=== PATIENT | male | born 1980 | race Caucasian/White ===

== ENCOUNTER 2023-06-24 12:30 | Observation (INO) | payer BC, SELFPAY ==
[2023-06-24] VITALS (13 sets, daily range): BP systolic 125–161; BP diastolic 79–99; PULSE 112–137; RESP 15–21; TEMP 37.2; O2SAT 92–98; BMI 45.1
--- NOTE | ~2023-06-24 | XR_ITS ---
EXAMINATION: XR chest 2V DATE: 06/26/2023 14:54 INDICATION: Hypoxia. TECHNIQUE: Frontal and lateral views of the chest were obtained. COMPARISON: Chest single view 06/24/2023 FINDINGS: There is no pneumonia, pleural effusion, or pneumothorax. The heart size is normal. There i s an electronic device in left anterior chest wall. IMPRESSION: 1. No acute cardiopulmonary disease. Reviewed, dictated and finalized at location E.
--- NOTE | ~2023-06-24 | XR_ITS ---
EXAMINATION: XR chest 1V portable 06/24/2023 13:10 INDICATION: Overdose. PROCEDURE: AP portable chest COMPARISON: No prior studies for comparison. FINDINGS: The lungs are clear. The cardiomediastinal silhouette is within normal limits. There are no pleural effusions. There is no pneumothorax suspected. IMPRESSION: 1: NO ACUTE CARDIOPULMONARY DISEASE. Reviewed, dictated and finalized at location A.
--- NOTE | ~2023-06-24 | CT_ITS ---
EXAMINATION: CT abdomen pelvis wo con DATE: 06/27/2023 14:39 INDICATION: Left lower quadrant abdominal pain. Diarrhea. TECHNIQUE: Computed tomography (CT) of the abdomen and pelvis was performed without intravenous contr ast. Automated exposure control and iterative reconstruction technique were employed. The dose-length product was 1625.28 mGy-cm. COMPARISON: None. FINDINGS: The visualized portions of the lung bases are clear without pneumonia or pleural effusion. The heart size is normal. No pericardial effusion. There is diffuse hepatic steatosis. The gallbladde r is decompressed. The spleen, pancreas, adrenal glands, and kidneys are normal. There is no urolithi asis. There are no dilated loops of bowel. The appendix is normal. There is an umbilical hernia conta ining fat. There are no pathologically enlarged lymph nodes. There is no free intraperitoneal fluid. There is mild thoracic and lumbar spondylosis. IMPRESSION: 1. Diffuse hepatic steatosis. 2. Umbilical hernia containing fat. Reviewed, dictated and finalized at location E.
--- NOTE | ~2023-06-24 | CT_ITS ---
EXAMINATION: CT brain wo con DATE: 06/24/2023 16:00 INDICATION: Altered mental state TECHNIQUE: Computed tomography (CT) of the head was performed without intravenous contrast. The mA wa s adjusted according to patient size. Iterative reconstruction technique was employed. Exam dose: 60 5.33 mGy-cm total exam DLP. COMPARISON: None FINDINGS: There is a prominent dense chronic calcification with attenuation of 707 Hounsfield units m easuring up to 7 x 12 mm in the left sylvian fissure. No intracranial mass lesion or hemorrhage or cerebrovascular accident, midline shift or mass effect i s detected. No subdural or epidural hematoma. Normal ventricular size. The orbital contents are unremarkable. The mastoid air cells and included paranasal sinuses are normally developed and aerated. No fracture or bone destruction of the cranial vault. IMPRESSION: No acute intracranial finding or skull fracture Reviewed, dictated and finalized at Location A. Reviewed, dictated and finalized at location A.
--- NOTE | ~2023-06-24 | NM_ITS ---
EXAMINATION: NM lung vent and perfusion DATE: 06/27/2023 12:52 INDICATION: Tachycardia and hypoxia TECHNIQUE: 22.0 mCi xenon-133 by inhalation and 5.5 mCi Tc-99m MAA by intravenous route. Scintigraph ic images of the chest were obtained. COMPARISON: Chest radiograph dated 06/26/2023 FINDINGS: There is homogeneous radiotracer activity throughout the lungs on the single breath ventilation seque nce. Diffuse delayed washout which could be seen with obstructive pulmonary disease. There is relativ sara homogeneous perfusion throughout the lungs. No discrete ventilation and perfusion mismatch is id entified. IMPRESSION: 1. Normal perfusion images. Low probability for pulmonary embolism. 2. Diffuse delayed washout which could be seen with obstructive pulmonary disease including asthma. Reviewed, dictated and finalized at location A. IMPRESSION: 1. Normal perfusion images. Low probability for pulmonary embolism. 2. Diffuse delayed washout which could be seen with obstructive pulmonary disea se including asthma.
--- NOTE | 2023-06-24 12:36 | ECG_ITS ---
SEE SCANNED COPY FOR CONFIRMED REPORT MTDD
[2023-06-24 13:01] LABS: Alveolar/Arterial O2 Gradient 29.2 mmHg; Base Excess ABG -0.8 mEq/l (+/-2.0); Fractional Inspired Oxygen 21 %; Oxygen Content ABG 22.6 %vol (16.0-22.0); Oxygen Saturation ABG 94.5 % (95.0-100.0); PCO2 ABG 40.3 mmHg (35.0-45.0); PO2 ABG 72.3 mmHg (80.0-100.0); PO2 FiO2 Ratio Arterial Blood 3.44 %; Total Hemoglobin 17.7 g/dL (12.0-18.0); pH ABG 7.392 (7.350-7.450)
[2023-06-24 13:02] LABS: Device ROOM AIR; Modified Allen's Test Pass; Site Drawn LEFT RADIAL
--- NOTE | 2023-06-24 13:04 | ED.OVERDOSE ---
HPI - Overdose General Chief Complaint: Overdose Stated Complaint: POSSIBLE si Time Seen by Provider: 06/24/23 12:36 History of Present Illness HPI Narrative: Patient is a 42-year-old male who presents ER for possible suicide attempt. Patient is currently going through a divorce, his sister had not seen him for several days and called for wellness check, patient was found unconscious and covered in feces and urine. Patient is awake alert oriented times 2-3 at this time. He is very intoxicated. He reports he has been drinking whiskey. He also reports that he took all of his pills. He does have a bag of pills with him and the bottles do not have a significant amount of missed some medication. He cannot tell us exactly what he did take. His daughter was found in the home. He denies intentionally killing his dog is unsure how the dog may have . Related Data Home Medications Medication Instructions Recorded Confirmed aripiprazole 30 mg tablet 30 mg PO DAILY 06/24/23 06/24/23 atorvastatin 80 mg tablet 80 mg PO DAILY 06/24/23 06/24/23 buspirone 10 mg tablet 10 mg PO TID 06/24/23 06/24/23 clopidogrel 75 mg tablet 75 mg PO DAILY 06/24/23 06/24/23 hydrochlorothiazide 12.5 mg tablet 12.5 mg PO DAILY 06/24/23 06/24/23 omeprazole 40 mg capsule,delayed 40 mg PO DAILY 06/24/23 06/24/23 release prazosin 2 mg capsule 2 mg PO HS 06/24/23 06/24/23 propranolol 40 mg tablet 40 mg PO BID 06/24/23 06/24/23 Allergies Allergy/AdvReac Type Severity Reaction Status Date / Time cefazolin [From Anc] Allergy Unknown Verified 06/24/23 13:26 NSAIDS (Non-Steroidal Allergy Swelling Verified 06/24/23 20:46 Anti-Inflamma of Lip/Tongue/Throat iohexol AdvReac Nausea Verified 06/24/23 20:46 [From contrast - CT, X-RAY] Review of Systems Review of Systems: ROS unobtainable: Yes unobtainable due to medical condition PMFSH Past Medical History Medical History (Updated 06/27/23 @ 13:13 by Henok Wellington MD) Alcohol abuse Depression GERD (gastroesophageal reflux disease) Hyperlipidemia Hypertension ETELVINA (obstructive sleep apnea) TIA (transient ischemic attack) Surgical History Surgical History No pertinent past surgical history Family History Family History Mother COPD (chronic obstructive pulmonary disease) Father Hypertension Social History Social History Smoking packs per day: 1 Smoking cigarettes per day: 20.0 Years smoked: 10 Smoking pack-years: 10.00 Smoking status: Former smoker Smokeless tobacco user: chewing tobacco Smoking end date: 06/23/20 Alcohol intake: current Substance use: never Substance use type: does not use Other substance usage details: drinks a fifth of Justin Beam daily Do You Feel Safe in your Home?: Yes Lack of Transportation: No Lack of Food: Never True Current Housing: I Have Housing Concerned About Future Housing: YES Difficulty Paying Gas/Electric Bills: No Difficulty Paying for Meds: No Currently Unemployed: No Education: High School Diploma/GED Difficulty w/ Childcare or Family Care: No Spiritual care concerns: No Exam Narrative: GENERAL: Well-appearing, well-nourished, and in no acute distress. HEAD: Normocephalic, atraumatic. EYES: PERRLA and EOMI. ENT: Nares clear, no rhinorrhea or epistaxis. Mucous membranes moist. NECK: Supple. CHEST: Clear to auscultation. No respiratory distress. HEART: Regular rate and rhythm. No murmur heard. Normal peripheral pulses. ABDOMEN: Soft, nontender, nondistended, normal active bowel sounds. EXTREMITIES: Normal range of motion. No edema. SKIN: Warm, dry, no rash. NEURO: No focal deficits. Alert and oriented x3. PSYCH: Normal mood and affect. Course Course Emergency Course: Patient aggressively hydrated. Re-e
[2023-06-24 13:05] LABS: Glucose Point of Care 121 mg/dl (65-105)
[2023-06-24] MEDS: SODIUM CHLORIDE 0.9% IV 1,000 ML 999 ML IV CONT ×3 (13:13→14:28)
[2023-06-24 13:16] LABS: Basophils Absolute Auto 0.1 K/mm3 (0.0-0.1); Basophils Percent Auto 0.6 % (0.2-1.2); Eosinophils Percent Auto 0.1 % (0-4.4); Hematocrit 50.4 % (42.0-52.0); Hemoglobin 16.8 g/dL (14.0-18.0); Immature Granulocyte Absolute 0.04 K/mm3 (0.00-0.031); Immature Granulocyte Percent A 0.4 % (0-0.5); Lymphocytes Absolute Auto 1.51 K/mm3 (0.9-3.2); Lymphocytes Percent Auto 14.2 % (18.3-44.2); Mean Corpuscular HGB Conc 33.3 g/dl (32-36); Mean Corpuscular Hemoglobin 28.5 pg (26-34); Mean Corpuscular Volume 85.6 fl (80-100); Mean Platelet Volume 9.5 fl (7.4-10.4); Monocytes Percent Auto 9.6 % (2.6-8.5); Neutrophils Percent Auto 75.1 % (45.5-73.1); Platelet Count Result 194 k/mm3 (150-375); Red Blood Count 5.89 M/mm3 (4.6-6.20); Red Cell Distribution Width 15.2 % (11.5-14.5); White Blood Count 10.6 K/mm3 (4.5-10.0)
--- NOTE | 2023-06-24 13:21 | PC.NURSE ---
Pt tried to urinate with urinal. Unable to give sample at this time. States he will try again in a couple minutes after getting more IVF.
[2023-06-24 13:29] LABS: Alanine Aminotransferase 165 U/L (6-50); Alkaline Phosphatase 128 U/L (38-126); Anion Gap 20 mmol/L (4-12); Aspartate Amino Transferase 300 U/L (17-59); Bilirubin,Total 1.2 mg/dL (0.2-1.3); Blood Urea Nitrogen 13 mg/dL (9-20); Calcium 8.6 mg/dL (8.4-10.2); Carbon Dioxide 24 mmol/L (22-30); Chloride 95 mmol/L (98-107); Estimated CRCL calculation 147 ml/min; Estimated Glomerular Filt Rate > 60; Glucose 112 mg/dL (65-110); Potassium 3.5 mmol/L (3.4-5.0); Sodium 139 mmol/L (137-145)
[2023-06-24 13:34] LABS: Magnesium 2.4 mg/dL (1.6-2.3)
[2023-06-24 13:46] LABS: Acetaminophen < 10 ug/mL (10-30); Salicylate < 1.0 mg/dL (2-20)
[2023-06-24 13:51] LABS: INR 0.9; Prothrombin Time 12.8 Seconds (11.1-14.7)
[2023-06-24 13:52] LABS: Partial Thromboplastin Time 26.9 Seconds (22.3-36.8)
[2023-06-24 14:03] LABS: Ethanol 419 mg/dL (<10); Lactic Acid Reflex 6.3 mmol/L (0.7-2.0)
--- NOTE | 2023-06-24 14:31 | PC.NURSE ---
Pt attempted to urinate with urinal again. Unable to void. Bladder scan performed, only showing 30mL. MD made aware. States urine can wait until fluids are done. Pt educated.
--- NOTE | 2023-06-24 15:47 | PC.NURSE ---
Patient's sister and called for update. With patient permission, update was given. Maty, pt estranged , can be reached at [phone] Kiana, pt sister, can be reached at [phone]. Both state that they live out of state and cannot be here with patient.
--- NOTE | 2023-06-24 15:53 | PC.NURSE ---
Pt taken to CT at this time
[2023-06-24 16:13] LABS: Reflex Lactic Acid Yes or No Add Lactic
[2023-06-24 16:35] LABS: Amphetamine Screen Urine Negative (Negative); Barbiturate Screen Urine Negative (Negative); Benzodiazepines Screen Urine Negative (Negative); Cannabinoid Screen Urine Negative (Negative); Cocaine Screen Urine Negative (Negative); Methadone Screen Urine Negative (Negative); Opiate Screen Urine Negative (Negative); Phencyclidine Screen Urine Negative (Negative)
[2023-06-24 17:24] LABS: Lactic Acid 4.3 mmol/L (0.7-2.0)
[2023-06-24 17:40] LABS: Appearance Urine Cloudy (Clear); Bacteria Urine None Seen /hpf; Bilirubin Urine 1+ (Negative); Blood Urine 2+ (Negative); Color Urine Dark Yellow (Yellow); Glucose Urine UA Negative (Negative); Hyaline Casts Urine Present /lpf; Ketones Urine 3+ mg/dL (Negative); Leukocyte Esterase Ur Negative LEU/UL (Negative); Need Manual Microscopic Reviewed; Nitrate Urine Negative (Negative); Non Pathogenic Casts 0-2; Protein Urine 4+ mg/dL (Negative); Squamous Epithelial Cell Urine None Seen /hpf (Few)
[2023-06-24 17:49] LABS: Add Urine Microscopic? YES
[2023-06-24 18:09] LABS: Acetaminophen < 10 ug/mL (10-30)
[2023-06-24] MEDS: SODIUM CHLORIDE 0.9% IV 1,000 ML 125 ML IV CONT (18:15)
[2023-06-24] MEDS: NICOTINE (*PBKC) 14 MG PATCH 1 PATCH TRANSDERM (18:15)
[2023-06-24 19:50] LABS: Glucose Point of Care 139 mg/dl (65-105)
[2023-06-24] MEDS: ONDANSETRON INJ 4 MG/2 ML VIAL IV PUSH (20:00)
--- NOTE | 2023-06-24 20:42 | ADMGEN ---
This patient, Frederic Carter, was admitted to Intensive Care Unit-4. Patient/family oriented to hospital policies and general routines including ID bracelet, bed and alarms, visiting hours, pain management, procedures, bathroom and other care routines, personal items, smoking policy, room service/diet, and visiting hours. Information on how to activate the Rapid Response Team has been discussed. Patient/Family are encouraged to report perceived risks to care and to ask questions if they do not understand what they are told or what they should do.
[2023-06-24 20:59] LABS: Lactic Acid Reflex 3.9 mmol/L (0.7-2.0)
[2023-06-24 21:02] LABS: Creatine Kinase 888 U/L (55-170)
[2023-06-24 21:03] LABS: Salicylate < 1.0 mg/dL (2-20)
--- NOTE | 2023-06-24 21:27 | PM.IMHP ---
H&P: HPI History of Present Illness Date/Time: 06/24/23 21:27 Chief Complaint: ETOH, Overdose Narrative: 42 y/o M presents here with acute intoxication, possible suicide attempt, and ingestion with PMH of HLD, HTN, and TIA (x3). Patient presents here for further evaluation after his sister called a wellness check. She had not seen him for several days, upon EMS arrival patient was found to be covered in feces and urine and laying on the ground in his house. Patient acutely intoxicated, uncooperative, and somnolent. Patient's dog was found in the home, denied intentionally killing his dog to ED provider, and is unsure how his dog . Patient - not currently going through a divorce, they do live in separate places due to their jobs. He has history of suicide ideation - on and off for the last 6 months. Patient cannot identify anything in particular adding to his suicidal ideation, states he is just over it . No previous history of a suicide attempt. Currently a daily alcohol drinker, drinks approximately a 5th of whiskey per day. Has been drinking daily for the last week, before that was completely from abstaining from alcohol for the past 3 months. Has tried to quit alcohol use 2 other times. Patient reports he attempted to drink 3 fifths this morning. Last drink: was at 12:00 pm this morning. Patient also initially reported that he took a bunch of pills this morning, now clarifying that he takes a bunch of pills daily but he took the normal amount that is prescribed to him and did not realize that it was misinterpreted as an attempted overdose. Meds were his home prescriptions. Is currently prescribed: Abilify, atorvastatin, BuSpar, Plavix, hydrochlorothiazide, omeprazole, prazosin, and propranolol. Patient sees a therapist, last saw him 3 months ago. Patient finding it difficulty to do his day-to-day activities and keeping up with appointments etc. Patient has previously withdrawn from alcohol and experienced N/V/D, tremors, diaphoresis and flu-like symptoms but no seizure activity. Patient is former smoker, but currently uses chewing tobacco. Initial VS at presentation: 99? F, HR 135, RR 20, 130/99, and 96% on RA. ED workup showed: WBC 10.6, no anemia, normal coags, sodium 139, chloride 95, gap 20, creatinine 0.8 and GFR >60, glucose 112, lactic acid 6.3, calcium 8.6, magnesium 2.4, total bilirubin 1.2, AST 300, ALT 165, alk-phos 128. UA not suggestive of UTI. UDS negative. Negative salicylate and acetaminophen x2. Ethanol 419. CXR showed no acute cardiopulmonary disease. Head CT showed no acute intracranial findings or skull fracture. Review of Systems Review of Systems: All systems reviewed & are unremarkable except as noted in HPI and below [facility] Past Medical History Medical History (Updated 06/24/23 @ 23:49 by Chasity Murillo APRN) Alcohol abuse Depression GERD (gastroesophageal reflux disease) Hyperlipidemia Hypertension TIA (transient ischemic attack) Surgical History Surgical History No pertinent past surgical history Family History Family History Mother COPD (chronic obstructive pulmonary disease) Father Hypertension Social History Social History Smoking packs per day: 1 Smoking cigarettes per day: 20.0 Years smoked: 10 Smoking pack-years: 10.00 Smoking status: Former smoker Smokeless tobacco user: chewing tobacco Smoking end date: 06/23/20 Alcohol intake: current Substance use: never Substance use type: does not use Other substance usage details: drinks a fifth of Justin Beam daily Do You Feel Safe in your Home?: Yes Lack of Transportation: No Lack of Food: Never True Current Housing: I Have Housing Concerned About Future Housing: YES Difficulty Paying Gas/Electric Bills: No Difficulty
--- NOTE | 2023-06-24 21:29 | ECG_ITS ---
SEE SCANNED COPY FOR CONFIRMED REPORT. MTDD
[2023-06-24 21:41] LABS: Thyroid Stimulating Hormone Reflex 0.857 uIU/mL (0.465-4.68)
[2023-06-24 22:00] LABS: Troponin I < 0.012 ng/mL (0.000-0.034)
[2023-06-24] MEDS: chlordiazePOXIDE (*CRX) 25 MG CAPSULE PO (22:35)
[2023-06-24] MEDS: PROPRANOLOL HCL 40 MG TABLET PO (22:35)
[2023-06-24] MEDS: PANTOPRAZOLE SODIUM IV 40 MG VIAL IV PUSH (22:36)
[2023-06-25] VITALS (20 sets, daily range): BP systolic 118–156; BP diastolic 70–103; PULSE 83–104; RESP 17–26; TEMP 37–37.1; O2SAT 93–99
[2023-06-25] MEDS: LORazepam INJ (*CRX) 2 MG/ML VIAL IV PUSH ×2 (00:19→03:20)
[2023-06-25] MEDS: NICOTINE (*PBKC) 21 MG PATCH 1 PATCH TRANSDERM ×2 (00:22→08:37)
[2023-06-25 00:42] LABS: Glucose Point of Care 92 mg/dl (65-105)
[2023-06-25 01:18] LABS: Troponin I < 0.012 ng/mL (0.000-0.034)
[2023-06-25] MEDS: SODIUM CHLORIDE 0.9% IV 1,000 ML 125 ML IV CONT ×4 (03:20→21:53)
[2023-06-25 04:35] LABS: Basophils Percent Auto 0.3 % (0.2-1.2); Eosinophils Percent Auto 0.3 % (0-4.4); Hematocrit 41.8 % (42.0-52.0); Hemoglobin 13.7 g/dL (14.0-18.0); Immature Granulocyte Absolute 0.03 K/mm3 (0.00-0.031); Immature Granulocyte Percent A 0.4 % (0-0.5); Immature Platelet Fraction Pct 3.4 % (0.9-11.2); Lymphocytes Absolute Auto 1.06 K/mm3 (0.9-3.2); Lymphocytes Percent Auto 15.7 % (18.3-44.2); Mean Corpuscular HGB Conc 32.8 g/dl (32-36); Mean Corpuscular Hemoglobin 28.6 pg (26-34); Mean Corpuscular Volume 87.3 fl (80-100); Mean Platelet Volume 9.4 fl (7.4-10.4); Monocytes Absolute Auto 0.6 K/mm3 (0.1-0.6); Neutrophils Percent Auto 74.3 % (45.5-73.1); Platelet Count Result 120 k/mm3 (150-375); Red Blood Count 4.79 M/mm3 (4.6-6.20); Red Cell Distribution Width 15.3 % (11.5-14.5); White Blood Count 6.8 K/mm3 (4.5-10.0)
[2023-06-25 04:59] LABS: Alanine Aminotransferase 124 U/L (6-50); Albumin Level 4.1 g/dL (3.5-5.1); Alkaline Phosphatase 93 U/L (38-126); Anion Gap 7 mmol/L (4-12); Aspartate Amino Transferase 152 U/L (17-59); Bilirubin,Total 1.6 mg/dL (0.2-1.3); Blood Urea Nitrogen 10 mg/dL (9-20); Calcium 8.5 mg/dL (8.4-10.2); Carbon Dioxide 29 mmol/L (22-30); Chloride 101 mmol/L (98-107); Estimated CRCL calculation 148 ml/min; Estimated Glomerular Filt Rate > 60; Glucose 85 mg/dL (65-110); Lactic Acid Reflex 1.5 mmol/L (0.7-2.0); Sodium 137 mmol/L (137-145)
[2023-06-25 05:04] LABS: Potassium 3.6 mmol/L (3.4-5.0)
[2023-06-25] MEDS: chlordiazePOXIDE (*CRX) 25 MG CAPSULE PO ×2 (06:51→13:55)
[2023-06-25] MEDS: THIAMINE HCL 200 MG/2 ML VIAL 100 MG IV PUSH (08:36)
[2023-06-25] MEDS: PANTOPRAZOLE SODIUM IV 40 MG VIAL IV PUSH (08:37)
[2023-06-25] MEDS: hydroCHLOROthiazide 12.5 MG CAPSULE PO (08:38)
[2023-06-25] MEDS: CLOPIDOGREL BISULFATE 75 MG TABLET PO (08:38)
--- NOTE | 2023-06-25 09:39 | PC.NURSE ---
Updated spouse on patyient request for no medical updates to family and he is ok with visitors at this time.
[2023-06-25] MEDS: PROPRANOLOL HCL 40 MG TABLET PO ×2 (10:33→16:18)
[2023-06-25 11:39] LABS: Glucose Point of Care 103 mg/dl (65-105)
--- NOTE | 2023-06-25 15:08 | PM.IMPN ---
Progress Note: A&P Assessment and Plan (1) Suicide attempt: Code(s): T14.91XA - Suicide attempt, initial encounter Status: Acute Assessment and Plan: Patient admits to a suicide attempt with drinking excessive amounts of alcohol. He also told EMS that he took pills but this unable to be verified. He has had suicidal ideation but no previous hx of suicide attempt Initial ETOH 419. UDS negative. Salicylates and Tylenol initial and 4 hour results also negative Patient receiving medical treatment and clearance Will need crisis consultation once stable Continue suicide precautions, sitter at bedside (2) Overdose: Code(s): T50.901A - Poisoning by unspecified drugs, medicaments and biological substances, accidental (unintentional), initial encounter Status: Acute Assessment and Plan: As above. Patient currently prescribed:Abilify, atorvastatin, BuSpar, Plavix, HCTZ, omeprazole, prazosin, and propranolol Unclear if he overdosed on any of these medications EKG: sinus tachycardia with rate of 124, borderline left axis deviation. Lactic acid: 6.3 -> 1.5 probably related to the alcohol Monitor on tele (3) Hypoxia: Code(s): R09.02 - Hypoxemia Status: Acute Assessment and Plan: Patient with hypoxia requiring 2-3 L. chest x-ray clear. Lung exam benign. Could be related to his untreated sleep apnea. Wean oxygen as tolerated. Repeat chest x-ray in the morning (4) Alcohol intoxication: Code(s): F10.929 - Alcohol use, unspecified with intoxication, unspecified Status: Acute Assessment and Plan: ETOH 419. LFTs elevated. Acute intoxication waning. Repeat alcohol level in AM (5) Alcohol abuse: Code(s): F10.10 - Alcohol abuse, uncomplicated Status: Acute Assessment and Plan: Patient is a daily drinker and consumed approximately a 5th of whiskey daily LFTs elevated with TB 1.2, AST 300, ALT 165, alk-phos 128 felt related to alcoholic hepatitis. CIWA 2-6 today. LFTs improving Patient was educated about the benefits of staying from alcohol use. Continue CIWA protocol. Continue Thiamine Has Ativan and Librium available as needed. Check hepatitis panel. (6) Tobacco abuse: Code(s): Z72.0 - Tobacco use Status: Acute Assessment and Plan: Patient was educated about the benefits of smoking cessation. Continue nicotine patch. (7) Hyperlipidemia: Code(s): E78.5 - Hyperlipidemia, unspecified Status: Acute Assessment and Plan: LFTs noted. Lipitor on hold. (8) Hypertension: Code(s): I10 - Essential (primary) hypertension Status: Acute Assessment and Plan: Patient's blood pressure was reviewed on 06/24 Blood pressure remains reasonably well controlled. Will continue to monitor (9) ETELVINA (obstructive sleep apnea): Code(s): G47.33 - Obstructive sleep apnea (adult) (pediatric) Status: Acute Assessment and Plan: Patient with ETELVINA. He cannot tolerate CPAP. Plan Questionable UTI -UA noted. Patient with dysuria. Urine culture pending. Start ciprofloxacin given his cephalosporin allergy. DVT Prophylaxis: SCDs Code Status: Full code Subjective Date/time seen: 06/25/23 15:08 Interval history: 42yo male with TIA, HTN and HLD here for alcohol intoxication and suicide attempt He admits that he was trying to hurt himself by drinking excessive amounts of alcohol. He has been having suicidal ideation. He denies hurting his dog. The dog has DM and he has not been giving him his insulin which may have caused the dog's . No CP or SOB. No n/v bu no appetite. Having dysuria and diarrhea. Exam Narrative: AF 98.8 148/91 91 24 97% 2L Gen - NARD Chest - CTA bilaterally, nml RR CV - RRR S1/S2. Tele showing occasional sinus tachycardia Abd - Soft, obese, NT Ext - No pedal edema Neuro - Alert and oriented. Nonfocal exam. Psych - Nml mood a
[2023-06-25] MEDS: PRAZOSIN HCL 1 MG CAPSULE 2 MG PO (20:06)
[2023-06-25] MEDS: CIPROFLOXACIN 500 MG TAB PO (20:06)
[2023-06-26] VITALS (13 sets, daily range): BP systolic 123–153; BP diastolic 78–95; PULSE 88–115; RESP 16–23; TEMP 36.9–37.1; O2SAT 95–98
[2023-06-26 00:31] LABS: Glucose Point of Care 90 mg/dl (65-105)
[2023-06-26 04:13] LABS: Basophils Percent Auto 0.4 % (0.2-1.2); Eosinophils Absolute Auto 0.1 K/mm3 (0-0.3); Eosinophils Percent Auto 2.2 % (0-4.4); Hematocrit 40.7 % (42.0-52.0); Hemoglobin 13.3 g/dL (14.0-18.0); Immature Granulocyte Absolute 0.03 K/mm3 (0.00-0.031); Immature Granulocyte Percent A 0.6 % (0-0.5); Immature Platelet Fraction Pct 4.3 % (0.9-11.2); Lymphocytes Absolute Auto 0.75 K/mm3 (0.9-3.2); Mean Corpuscular HGB Conc 32.7 g/dl (32-36); Mean Corpuscular Hemoglobin 28.7 pg (26-34); Mean Corpuscular Volume 87.9 fl (80-100); Mean Platelet Volume 10.2 fl (7.4-10.4); Monocytes Absolute Auto 0.5 K/mm3 (0.1-0.6); Monocytes Percent Auto 10.8 % (2.6-8.5); Neutrophils Absolute Auto 3.5 K/mm3 (1.3-6.7); Platelet Count Result 84 k/mm3 (150-375); Red Blood Count 4.63 M/mm3 (4.6-6.20); Red Cell Distribution Width 14.8 % (11.5-14.5)
[2023-06-26 04:24] LABS: Alanine Aminotransferase 99 U/L (6-50); Albumin Level 3.7 g/dL (3.5-5.1); Alkaline Phosphatase 82 U/L (38-126); Anion Gap 6 mmol/L (4-12); Aspartate Amino Transferase 90 U/L (17-59); Bilirubin,Total 1.4 mg/dL (0.2-1.3); Blood Urea Nitrogen 6 mg/dL (9-20); Calcium 8.5 mg/dL (8.4-10.2); Carbon Dioxide 31 mmol/L (22-30); Chloride 96 mmol/L (98-107); Estimated CRCL calculation 148 ml/min; Estimated Glomerular Filt Rate > 60; Glucose 87 mg/dL (65-110); Sodium 133 mmol/L (137-145)
[2023-06-26 04:26] LABS: Ethanol < 10 mg/dL (<10)
[2023-06-26 05:28] LABS: Hepatitis B Surface Antigen Negative (Negative)
[2023-06-26 05:34] LABS: HAV RESULT Negative (Negative); Hepatitis B Core IgM Result Negative (Negative)
[2023-06-26 05:46] LABS: Hepatitis C Virus Antibody Negative (Negative)
[2023-06-26] MEDS: SODIUM CHLORIDE 0.9% IV 1,000 ML 125 ML IV CONT (06:07)
[2023-06-26] MEDS: hydroCHLOROthiazide 12.5 MG CAPSULE PO (08:21)
[2023-06-26] MEDS: CIPROFLOXACIN 500 MG TAB PO (08:21)
[2023-06-26] MEDS: PROPRANOLOL HCL 40 MG TABLET PO ×2 (08:21→16:21)
[2023-06-26] MEDS: THIAMINE HCL 200 MG/2 ML VIAL 100 MG IV PUSH (08:21)
[2023-06-26] MEDS: CLOPIDOGREL BISULFATE 75 MG TABLET PO (08:21)
[2023-06-26] MEDS: PANTOPRAZOLE SODIUM IV 40 MG VIAL IV PUSH (08:22)
[2023-06-26] MEDS: NICOTINE (*PBKC) 21 MG PATCH 1 PATCH TRANSDERM (08:22)
[2023-06-26] MEDS: POTASSIUM CHLORIDE 20 MEQ ER TABLET 40 MEQ PO (08:44)
[2023-06-26 08:51] LABS: Magnesium 1.7 mg/dL (1.6-2.3)
[2023-06-26] MEDS: POTASSIUM CHLORIDE 20 MEQ ER TABLET PO (10:19)
[2023-06-26 12:20] LABS: Potassium 3.7 mmol/L (3.4-5.0)
[2023-06-26] MEDS: busPIRone HCL 10 MG TABLET PO ×2 (12:31→16:21)
--- NOTE | 2023-06-26 13:45 | PM.IMPN ---
Progress Note: A&P Assessment and Plan (1) Suicide attempt: Code(s): T14.91XA - Suicide attempt, initial encounter Status: Acute Assessment and Plan: Patient admits to a suicide attempt with drinking excessive amounts of alcohol. He also told EMS that he took pills but this was unable to be verified. He has had suicidal ideation but no previous hx of suicide attempt Initial ETOH 419. UDS negative. Salicylates and Tylenol initial and 4 hour results also negative Patient receiving medical treatment and clearance Will need crisis consultation once stable Continue suicide precautions, sitter at bedside (2) Overdose: Code(s): T50.901A - Poisoning by unspecified drugs, medicaments and biological substances, accidental (unintentional), initial encounter Status: Acute Assessment and Plan: As above. Patient currently prescribed:Abilify, atorvastatin, BuSpar, Plavix, HCTZ, omeprazole, prazosin, and propranolol Unclear if he overdosed on any of these medications EKG: sinus tachycardia with rate of 124, borderline left axis deviation. Lactic acid: 6.3 -> 1.5 probably related to the alcohol Most of his home medications resumed. Monitor on tele (3) Hypoxia: Code(s): R09.02 - Hypoxemia Status: Acute Assessment and Plan: Patient with hypoxia requiring 2-3 L. chest x-ray clear. Lung exam benign. Could be related to his untreated sleep apnea. Wean oxygen as tolerated. Repeat CXR (4) Alcohol intoxication: Code(s): F10.929 - Alcohol use, unspecified with intoxication, unspecified Status: Acute Assessment and Plan: ETOH 419. LFTs elevated. Acute intoxication waning. Repeat alcohol level <10 (5) Alcohol abuse: Code(s): F10.10 - Alcohol abuse, uncomplicated Status: Acute Assessment and Plan: Patient is a daily drinker and consumed approximately a 5th of whiskey daily LFTs elevated with TB 1.2, AST 300, ALT 165, alk-phos 128 felt related to alcoholic hepatitis. Hepatitis panel negative. CIWA 0-2 today. LFTs improving Patient was educated about the benefits of staying from alcohol use. Continue CIWA protocol. Continue Thiamine Has Ativan and Librium available as needed. (6) Tobacco abuse: Code(s): Z72.0 - Tobacco use Status: Acute Assessment and Plan: Patient was educated about the benefits of smoking cessation. Continue nicotine patch. (7) Hyperlipidemia: Code(s): E78.5 - Hyperlipidemia, unspecified Status: Acute Assessment and Plan: LFTs noted. Lipitor on hold. (8) Hypertension: Code(s): I10 - Essential (primary) hypertension Status: Acute Assessment and Plan: Patient's blood pressure was reviewed on 06/25 Blood pressure remains reasonably well controlled. Will continue to monitor (9) ETELVINA (obstructive sleep apnea): Code(s): G47.33 - Obstructive sleep apnea (adult) (pediatric) Status: Acute Assessment and Plan: Patient with ETELVINA. He cannot tolerate CPAP. Plan Questionable UTI -UA noted. Patient with dysuria. Urine culture negative. Stop Cipro. UTI ruled out DVT Prophylaxis: SCDs Code Status: Full code Subjective Date/time seen: 06/26/23 13:45 Interval history: 42yo male with TIA, HTN and HLD here for alcohol intoxication and suicide attempt No fever or chills. Has WAGGONER. Quit smoking but still chews tobacco and states he has no desire to quit. No cough or SOB. No CP or pleuritic CP. Eating better. Noncompliant with CPAP. Complains of tarry stools for the past month. No colonoscopy in the past. Exam Narrative: AF 98.7 153/95 90 16 95% 1L Gen - NARD Chest - CTA bilaterally, nml RR CV - RRR S1/S2. Tele showing occasional sinus tachycardia Abd - Soft, obese, NT Ext - No pedal edema. Negative Homans Psych - Nml mood and affect. Skin - Warm and dry Objective Data Vital Signs Vital Signs: Vital Signs -
[2023-06-26] MEDS: MAGNESIUM SULF 2 GM/WATER 50ML 2 GM/50 ML BAG IVPB (15:09)
[2023-06-26] MEDS: PRAZOSIN HCL 1 MG CAPSULE 2 MG PO (21:21)
[2023-06-27] VITALS (7 sets, daily range): BP systolic 126–136; BP diastolic 82–94; PULSE 91–122; RESP 13–16; TEMP 36.8–37; O2SAT 92–96
[2023-06-27 03:58] LABS: Basophils Percent Auto 0.4 % (0.2-1.2); Eosinophils Absolute Auto 0.2 K/mm3 (0-0.3); Eosinophils Percent Auto 4.6 % (0-4.4); Hematocrit 41.8 % (42.0-52.0); Hemoglobin 13.9 g/dL (14.0-18.0); Immature Granulocyte Absolute 0.01 K/mm3 (0.00-0.031); Immature Granulocyte Percent A 0.2 % (0-0.5); Immature Platelet Fraction Pct 6.1 % (0.9-11.2); Lymphocytes Absolute Auto 0.89 K/mm3 (0.9-3.2); Lymphocytes Percent Auto 19.4 % (18.3-44.2); Mean Corpuscular HGB Conc 33.3 g/dl (32-36); Mean Corpuscular Hemoglobin 28.9 pg (26-34); Mean Corpuscular Volume 86.9 fl (80-100); Mean Platelet Volume 10.3 fl (7.4-10.4); Monocytes Absolute Auto 0.5 K/mm3 (0.1-0.6); Monocytes Percent Auto 11.8 % (2.6-8.5); Neutrophils Absolute Auto 2.9 K/mm3 (1.3-6.7); Neutrophils Percent Auto 63.6 % (45.5-73.1); Platelet Count Result 91 k/mm3 (150-375); Red Blood Count 4.81 M/mm3 (4.6-6.20); Red Cell Distribution Width 14.8 % (11.5-14.5); White Blood Count 4.6 K/mm3 (4.5-10.0)
[2023-06-27 04:12] LABS: IFOB Positive Control Positive; Immunochemical Fecal Occult Bl Negative (N)
[2023-06-27 04:16] LABS: Alanine Aminotransferase 109 U/L (6-50); Albumin Level 3.8 g/dL (3.5-5.1); Alkaline Phosphatase 100 U/L (38-126); Anion Gap 6 mmol/L (4-12); Aspartate Amino Transferase 128 U/L (17-59); Bilirubin,Total 0.9 mg/dL (0.2-1.3); Blood Urea Nitrogen 7 mg/dL (9-20); Calcium 9.3 mg/dL (8.4-10.2); Carbon Dioxide 33 mmol/L (22-30); Chloride 97 mmol/L (98-107); Estimated CRCL calculation 167 ml/min; Estimated Glomerular Filt Rate > 60; Glucose 113 mg/dL (65-110); Potassium 3.2 mmol/L (3.4-5.0); Sodium 136 mmol/L (137-145)
[2023-06-27] MEDS: CLOPIDOGREL BISULFATE 75 MG TABLET PO (08:57)
[2023-06-27] MEDS: POTASSIUM CHLORIDE 20 MEQ ER TABLET 40 MEQ PO ×2 (08:57→14:59)
[2023-06-27] MEDS: PANTOPRAZOLE 40 MG TABLET PO (08:57)
[2023-06-27] MEDS: NICOTINE (*PBKC) 21 MG PATCH 1 PATCH TRANSDERM (08:57)
[2023-06-27] MEDS: hydroCHLOROthiazide 12.5 MG CAPSULE PO (08:57)
[2023-06-27] MEDS: busPIRone HCL 10 MG TABLET PO ×3 (08:57→16:58)
[2023-06-27] MEDS: PROPRANOLOL HCL 40 MG TABLET PO (08:58)
[2023-06-27] MEDS: POTASSIUM CHLORIDE 20 MEQ ER TABLET PO (08:58)
[2023-06-27] MEDS: THIAMINE HCL 100 MG TABLET PO (08:58)
[2023-06-27 11:13] LABS: Potassium 3.5 mmol/L (3.4-5.0)
--- NOTE | 2023-06-27 13:11 | PM.IMPN ---
Progress Note: A&P Assessment and Plan (1) Suicide attempt: Code(s): T14.91XA - Suicide attempt, initial encounter Status: Acute Assessment and Plan: Patient admits to a suicide attempt with drinking excessive amounts of alcohol. He also told EMS that he took pills but this was unable to be verified. He has had suicidal ideation but no previous hx of suicide attempt Initial ETOH 419. UDS negative. Salicylates and Tylenol initial and 4 hour results also negative Repeat alcohol level negative. Patient receiving medical treatment and clearance Will need crisis consultation once stable Continue suicide precautions, sitter at bedside (2) Overdose: Code(s): T50.901A - Poisoning by unspecified drugs, medicaments and biological substances, accidental (unintentional), initial encounter Status: Acute Assessment and Plan: As above. Patient currently prescribed:Abilify, atorvastatin, BuSpar, Plavix, HCTZ, omeprazole, prazosin, and propranolol Unclear if he overdosed on any of these medications EKG: sinus tachycardia with rate of 124, borderline left axis deviation. Lactic acid: 6.3 -> 1.5 probably related to the alcohol Most of his home medications resumed. Monitor on tele (3) Hypoxia: Code(s): R09.02 - Hypoxemia Status: Acute Assessment and Plan: Patient with hypoxia requiring 2-3 L. chest x-ray was clear. Lung exam benign. Could be related to his untreated sleep apnea. Able to be weaned off oxygen but still tachycardic at times. Repeat chest x-ray clear. Check V/Q scan. (4) Alcohol intoxication: Code(s): F10.929 - Alcohol use, unspecified with intoxication, unspecified Status: Acute Assessment and Plan: ETOH 419. LFTs elevated. Acute intoxication waning. Repeat alcohol level <10 (5) Alcohol abuse: Code(s): F10.10 - Alcohol abuse, uncomplicated Status: Acute Assessment and Plan: Patient is a daily drinker and consumed approximately a 5th of whiskey daily LFTs elevated with TB 1.2, AST 300, ALT 165, alk-phos 128 felt related to alcoholic hepatitis. Hepatitis panel negative. CIWA 0-1. LFTs higher today but still better than on admission. Patient was educated about the benefits of staying from alcohol use. Continue CIWA protocol. Continue Thiamine. Monitor LFTs Has Ativan and Librium available as needed. (6) Tobacco abuse: Code(s): Z72.0 - Tobacco use Status: Acute Assessment and Plan: Patient was educated about the benefits of smoking cessation. Continue nicotine patch. (7) Hyperlipidemia: Code(s): E78.5 - Hyperlipidemia, unspecified Status: Acute Assessment and Plan: LFTs noted. Lipitor on hold. (8) Hypertension: Code(s): I10 - Essential (primary) hypertension Status: Acute Assessment and Plan: Patient's blood pressure was reviewed on 06/26 Blood pressure remains reasonably well controlled. Will continue to monitor (9) ETELVINA (obstructive sleep apnea): Code(s): G47.33 - Obstructive sleep apnea (adult) (pediatric) Status: Acute Assessment and Plan: Patient with ETELVINA. He cannot tolerate CPAP. (10) Diarrhea: Code(s): R19.7 - Diarrhea, unspecified Status: Acute Assessment and Plan: Patient with diarrhea was present on admission. [place] related to his alcohol use. Stool guaiac was negative. White count is normal. Does have increasing LFTs and left lower quadrant tenderness. Proceed with CT of the abdomen pelvis exclude diverticulitis. Plan Questionable UTI -UA noted. Patient with dysuria. Urine culture negative. Stop Cipro. UTI ruled out DVT Prophylaxis: SCDs Code Status: Full code Subjective Date/time seen: 06/27/23 13:11 Interval history: 42yo male with TIA, HTN and HLD here for alcohol intoxication and suicide attempt Patient still having diarrhea. He has had 3 liquid stools so far t
[2023-06-28] VITALS: BP 113/75; PULSE 95; RESP 16
[2023-06-28] MEDS: PRAZOSIN HCL 1 MG CAPSULE 2 MG PO (00:45)
[2023-06-28] MEDS: PROPRANOLOL HCL 40 MG TABLET PO ×2 (00:46→07:50)
[2023-06-28] MEDS: chlordiazePOXIDE (*CRX) 25 MG CAPSULE PO ×2 (00:51→07:51)
[2023-06-28 04:00] VITALS: BP 113/75; PULSE 95
[2023-06-28 04:26] LABS: Hematocrit 43.6 % (42.0-52.0); Hemoglobin 14.4 g/dL (14.0-18.0); Immature Platelet Fraction Pct 5.5 % (0.9-11.2); Mean Corpuscular Hemoglobin 28.8 pg (26-34); Mean Corpuscular Volume 87.2 fl (80-100); Mean Platelet Volume 10.3 fl (7.4-10.4); Platelet Count Result 113 k/mm3 (150-375); Red Cell Distribution Width 15.3 % (11.5-14.5); White Blood Count 5.1 K/mm3 (4.5-10.0)
[2023-06-28 04:36] LABS: Alanine Aminotransferase 163 U/L (6-50); Albumin Level 3.8 g/dL (3.5-5.1); Alkaline Phosphatase 91 U/L (38-126); Anion Gap 3 mmol/L (4-12); Aspartate Amino Transferase 185 U/L (17-59); Bilirubin,Total 0.8 mg/dL (0.2-1.3); Blood Urea Nitrogen 7 mg/dL (9-20); Calcium 9.3 mg/dL (8.4-10.2); Carbon Dioxide 34 mmol/L (22-30); Chloride 101 mmol/L (98-107); Estimated CRCL calculation 146 ml/min; Estimated Glomerular Filt Rate > 60; Glucose 99 mg/dL (65-110); Potassium 3.6 mmol/L (3.4-5.0); Sodium 138 mmol/L (137-145)
[2023-06-28] MEDS: hydroCHLOROthiazide 12.5 MG CAPSULE PO (07:49)
[2023-06-28 07:50] VITALS: PULSE 111
[2023-06-28] MEDS: PANTOPRAZOLE 40 MG TABLET PO (07:50)
[2023-06-28] MEDS: busPIRone HCL 10 MG TABLET PO ×2 (07:50→12:18)
[2023-06-28] MEDS: NICOTINE (*PBKC) 21 MG PATCH 1 PATCH TRANSDERM (07:51)
[2023-06-28] MEDS: CLOPIDOGREL BISULFATE 75 MG TABLET PO (07:51)
[2023-06-28] MEDS: THIAMINE HCL 100 MG TABLET PO (07:51)
[2023-06-28 08:00] VITALS: BP 126/80; PULSE 101; RESP 16; TEMP 36.4; O2SAT 95
[2023-06-28 10:06] LABS: SARS-CoV-2 RNA PCR Negative (Negative)
[2023-06-28 12:00] VITALS: PULSE 92
[2023-06-28] MEDS: LORazepam (*CRX) 0.5 MG TABLET PO (12:18)
--- NOTE | 2023-06-28 12:31 | PC.NURSE ---
Report given to Yvonne, weight control engineer, at [facility]. Dr. Inman accepting physician. Instructed to have lovisa bring the patient to intake for a bed assignment upon arrival to facility.
--- NOTE | 2023-06-28 13:19 | PM.TDS ---
Transfer Discharge Sum: Prov Provider Date of admission: 06/24/23 17:59 Primary care physician: UNKNOWN,DOCTOR Admitting clinician: Marc Wellington MD DS: Admitting Diagnosis Discharge Date 06/28/23 Admitting Diagnosis Alcohol intoxication and suicide attempt DS: Discharge Diagnosis Discharge Diagnosis (1) Suicide attempt: Code(s): T14.91XA - Suicide attempt, initial encounter Status: Acute (2) Overdose: Code(s): T50.901A - Poisoning by unspecified drugs, medicaments and biological substances, accidental (unintentional), initial encounter Status: Acute (3) Hypoxia: Code(s): R09.02 - Hypoxemia Status: Acute (4) Alcohol intoxication: Code(s): F10.929 - Alcohol use, unspecified with intoxication, unspecified Status: Acute (5) Alcohol abuse: Code(s): F10.10 - Alcohol abuse, uncomplicated Status: Acute (6) Tobacco abuse: Code(s): Z72.0 - Tobacco use Status: Acute Assessment and Plan: Patient was educated about the benefits of smoking cessation. Continue nicotine patch. (7) Hyperlipidemia: Code(s): E78.5 - Hyperlipidemia, unspecified Status: Acute (8) Hypertension: Code(s): I10 - Essential (primary) hypertension Status: Acute (9) ETELVINA (obstructive sleep apnea): Code(s): G47.33 - Obstructive sleep apnea (adult) (pediatric) Status: Acute (10) Diarrhea: Code(s): R19.7 - Diarrhea, unspecified Status: Acute Transfer Discharge Sum: Med Medications Active and Home Medications: Home Medications aripiprazole 30 mg tablet 30 mg PO DAILY 06/24/23 [History Confirmed 06/24/23] atorvastatin 80 mg tablet 80 mg PO DAILY 06/24/23 [History Confirmed 06/24/23] buspirone 10 mg tablet 10 mg PO TID 06/24/23 [History Confirmed 06/24/23] clopidogrel 75 mg tablet 75 mg PO DAILY 06/24/23 [History Confirmed 06/24/23] hydrochlorothiazide 12.5 mg tablet 12.5 mg PO DAILY 06/24/23 [History Confirmed 06/24/23] omeprazole 40 mg capsule,delayed release 40 mg PO DAILY 06/24/23 [History Confirmed 06/24/23] prazosin 2 mg capsule 2 mg PO HS 06/24/23 [History Confirmed 06/24/23] propranolol 40 mg tablet 40 mg PO BID 06/24/23 [History Confirmed 06/24/23] Transfer Discharge Sum: Hosp Hospital Course Hospital course: Frederic Carter is a 42yo male with TIA, HTN and HLD here for alcohol intoxication and suicide attempt. Please see H&P for details. Patient admits to a suicide attempt with drinking excessive amounts of alcohol. He also told EMS that he took pills but this was unable to be verified. He has had suicidal ideation but no previous hx of suicide attempt. Initial ETOH 419. UDS negative. Salicylates and Tylenol initial and 4 hour results also negative. Repeat alcohol level negative. EKG: sinus tachycardia with rate of 124, borderline left axis deviation. Lactic acid:? 6.3 -> 1.5 probably related to the alcohol. Patient with hypoxia requiring 2-3 L. chest x-ray was clear. Lung exam benign. Able to be weaned off oxygen but still tachycardic at times. V/Q scan showing low probability of PE. Delayed washout so consider COPD or asthma. Patient with ETELVINA.? He cannot tolerate CPAP. Patient is a daily drinker and consumed approximately a 5th of whiskey daily. LFTs elevated with TB 1.2, AST 300, ALT 165, alk-phos 128 felt related to alcoholic hepatitis. Hepatitis panel negative. Monitor with CIWA . LFTs higher today but still better than on admission. Patient was educated about the benefits of staying from alcohol use. Started on Thiamine. Patient with diarrhea was present on admission.? [place] related to his alcohol use. Stool guaiac was negative. White count was normal.? Does have left lower quadrant tenderness. CT A/p showing diffuse hepatic steatosis but now evidence of colitis. Diarrhea resolvinig. Patient was educated about the benefits of smoking cessation. Patient receiving medical treatment and clearance.
== END 2023-06-28 13:12 ==
LOC: ANHED 17:56 → ANHICU 20:04
PROVIDERS: General Practice; Student in an Organized Health Care Education/Training Program; Admitting Provider Internal Medicine; Emergency Provider Emergency Medicine; Visit Provider Internal Medicine
DX: T14.91XA Suicide attempt, initial encounter (principal); T50.901A Poisoning by unspecified drugs, medicaments and biological substances, accidental (unintentional), initial encounter; R09.02 Hypoxemia; F10.120 Alcohol abuse with intoxication, uncomplicated; Y90.8 Blood alcohol level of 240 mg/100 ml or more; R19.7 Diarrhea, unspecified; R30.0 Dysuria; I10 Essential (primary) hypertension; E78.5 Hyperlipidemia, unspecified; G47.33 Obstructive sleep apnea (adult) (pediatric); F32.A Depression, unspecified; F17.220 Nicotine dependence, chewing tobacco, uncomplicated; Z86.73 Personal history of transient ischemic attack (TIA), and cerebral infarction without residual deficits; Z79.02 Long term (current) use of antithrombotics/antiplatelets; Z11.52 Encounter for screening for COVID-19
CPT/HCPCS: 36415; 36600; 70450; 71045; 71046; 74176; 78582; 80053; 80074; 80307; 81001; 82274; 82550; 82805; 82948; 83605; 83735; 84132; 84443; 84484; 85025; 85027; 85055; 85610; 85730; 87086; 87635; 93005; 96361; 96365; 96367; 96374; 96375; 96376; 99285; A9270; A9540; A9558; C9113; G0378; J2060; J2405; J3411; J3475; J7030